=== PATIENT | female | born 1980 | race American Indian/Alaskan Native ===

== ENCOUNTER 2021-02-10 20:35 | Emergency (ER) | payer BC ==
[2021-02-10 22:37] VITALS: BP 136/64
[2021-02-10 23:27] LABS: Bilirubin,Urine NEG (Negative); Blood,Urine NEG (Negative); Color,Urine Yellow (Yellow); Mucus,Urine FEW /HPF; Protein,Urine <15 mg/dL mg/dL (Negative)
[2021-02-11] MEDS ORDERED: IBUPROFEN 600 MG TAB PO ONE (00:59)
[2021-02-11] MEDS ORDERED: ONDANSETRON 4 MG/2 ML INJ IV ONE (00:59)
[2021-02-11] MEDS ORDERED: predniSONE 20 MG TAB PO ONE (00:59)
[2021-02-11] MEDS ORDERED: diazePAM 5 MG TAB PO ONE (00:59)
[2021-02-11] MEDS ORDERED: ONDANSETRON 4 MG ODT TAB PO ONE (01:20)
--- NOTE | 2021-02-11 01:24 | Emergency Department Report ---
ED Back Pain/Injury HPI - General Chief Complaint: Back Pain/Injury Stated Complaint: BACK PAIN Source: patient Limitations: No Limitations - History of Present Illness Initial Comments: Patient is a 40-year-old -Swiss female with no past medical history presents to the ED with complaint of acute onset persistent nontraumatic low back pain for the last 2 days, worse in the last 12 hours. Patient states that the pain is worse with any movement and that the pain is sharp and constant diffusely in the lower back. Patient denies fall, traumatic injury, heavy lifting, dysuria, urinary frequency and urgency, vaginal bleeding, dizziness, nausea and vomiting, abdominal pain, diarrhea, numbness and tingling or weakness of lower extremities bilaterally, urinary retention or incontinence, fever, chills, bowel incontinence and saddle paresthesia. MD Complaint: back pain (lower back pain) -: Sudden, days(s) (2) Similar Symptoms Previously: No Place: home Radiation: none Severity: severe Severity scale (0 -10): 7 Quality: sharp, aching Consistency: constant Improves With: none Worsens With: movement Context: unknown, other (spontaneous) Associated Symptoms: denies other symptoms. denies: confusion, weakness, chest pain, numbness, difficulty walking, cough, difficulty urinating, diaphoresis, constipation, headaches, abdominal pain, loss of appetite, malaise, nausea/vomiting, rash, seizure, shortness of breath, syncope Treatments Prior to Arrival: acetaminophen - Related Data Previous Rx's Medication Instructions Recorded Last Taken Type Ibuprofen [Motrin] 800 mg PO Q8HR PRN #30 tablet 02/11/21 Unknown Rx methOCARBAMOL [Robaxin TAB] 750 mg PO Q8H PRN #21 tablet 02/11/21 Unknown Rx Allergies Allergy/AdvReac Type Severity Reaction Status Date / Time No Known Allergies Allergy Unverified 02/10/21 22:34 ED Review of Systems ROS: Stated complaint: BACK PAIN Other details as noted in HPI Constitutional: denies: chills, fever Eyes: denies: eye pain, eye discharge, vision change ENT: denies: ear pain, throat pain Respiratory: denies: cough, shortness of breath, wheezing Cardiovascular: denies: chest pain, palpitations Endocrine: no symptoms reported Gastrointestinal: denies: abdominal pain, nausea, vomiting, diarrhea Genitourinary: denies: urgency, dysuria, discharge Musculoskeletal: denies: back pain, joint swelling, arthralgia Skin: denies: rash, lesions Neurological: denies: headache, weakness, paresthesias Psychiatric: denies: anxiety, depression Hematological/Lymphatic: denies: easy bleeding, easy bruising ED Past Medical Hx - Past Medical History Previous Medical History?: Yes Additional medical history: chronic back pain - Surgical History Past Surgical History?: No - Social History Smoking Status: Never Smoker Substance Use Type: None - Medications Home Medications: Home Medications Medication Instructions Recorded Confirmed Last Taken Type Ibuprofen [Motrin] 800 mg PO Q8HR PRN #30 tablet 02/11/21 Unknown Rx methOCARBAMOL [Robaxin TAB] 750 mg PO Q8H PRN #21 tablet 02/11/21 Unknown Rx ED Physical Exam - General Limitations: No Limitations General appearance: alert, in no apparent distress - Head Head exam: Present: atraumatic, normocephalic, normal inspection - Eye Eye exam: Present: normal appearance, PERRL, EOMI Pupils: Present: normal accommodation - ENT ENT exam: Present: normal exam, normal orophraynx, mucous membranes moist, TM's normal bilaterally, normal external ear exam - Neck Neck exam: Present: normal inspection, full ROM - Respiratory Respiratory exam: Present: normal lung sounds bilaterally. Absent: respiratory distress, wheezes, rales, rhonchi, stridor, chest wall tenderness, accessory muscle use, decreased breath sounds, prolonged expiratory - Cardiovascular Cardiovascular Exam: Present: regular rate, normal rhythm, normal heart sounds. Absent: systolic murmur, diastolic murmur, rubs, gallop - GI/Abdominal GI/Abdominal exam: Present: soft, normal bowel sounds. Absent: tenderness, guarding, rebound, hyperactive bowel sounds, hypoactive bowel sounds, organomegaly - Extremities Exam Extremities exam: Present: normal inspection, full ROM, normal capillary refill - Back Exam Back exam: Present: normal inspection, full ROM, tenderness (Palpable lumbosacral paraspinal musculoskeletal tenderness), muscle spasm, paraspinal tenderness - Neurological Exam Neurological exam: Present: alert, oriented X3, CN II-XII intact, normal gait, reflexes normal - Psychiatric Psychiatric exam: Present: normal affect, normal mood - Skin Skin exam: Present: warm, dry, intact, normal color. Absent: rash ED Course Vital Signs 02/10/21 22:35 Temperature 98.9 F Pulse Rate 85 Respiratory 18 Rate Blood Pressure 136/64 O2 Sat by Pulse 96 Oximetry ED Medical Decision Making - Medical Decision Making This is a 40-year-old -[place]iss female with no past medical history presents to the ED with complaint of acute onset persistent nontraumatic low back pain for the last 2 days, worse in the last 12 hours. Patient states that the pain is worse with any movement and that the pain is sharp and constant diffusely in the lower back. In the ED, patient is alert and oriented x3 and is not in any distress. Patient was treated for pain in the ED and urinalysis showed no acute urinary tract infection. Patient symptoms are likely due to muscle spasm given the fact that the pain is not due to traumatic injury or heavy lifting. Patient has not exhibited any neurological symptoms or sciatica symptoms. On reevaluation, patient pain is well controlled medication. Patient was discharged home on pain medications and muscle relaxants and was advised to follow-up with her primary care physician in 5 to 7 days for reevaluation. Patient is advised return to the ED immediately if symptoms get worse. - Differential Diagnosis Muscle spasm; UTI; muscle strain; kidney stones Critical care attestation.: If time is entered above; I have spent that time in minutes in the direct care of this critically ill patient, excluding procedure time. ED Disposition Clinical Impression: Spasm of muscle of lower back, Strain of muscle, fascia and tendon of lower back, initial encounter Acute low back pain without sciatica Qualifiers: Back pain laterality: bilateral Qualified Code(s): M54.5 - Low back pain Disposition: - TO HOME OR SELFCARE Is pt being admited?: No Does the pt Need Aspirin: No Condition: Stable Instructions: Muscle Strain, [id number], Muscle Cramps and Spasms, [id number], Low Back Sprain or Strain Rehab-SportsMed Additional Instructions: Urinalysis showed no acute abnormalities. Your symptoms are likely due to muscle spasm or muscle strain of lower back. Therefore take pain medications as needed as well as muscle relaxants. Follow-up with your primary care physician in 5 to 7 days for reevaluation. Return to the ED immediately if symptoms get worse. Prescriptions: Ibuprofen [Motrin] 800 mg PO Q8HR PRN #30 tablet PRN Reason: Pain , Severe (7-10) methOCARBAMOL [Robaxin TAB] 750 mg PO Q8H PRN #21 tablet PRN Reason: Muscle Spasm Referrals: [facility] [Provider Group] - 3-5 Days Forms: Work/School Release Form(ED) Time of Disposition: 01:29 Print Language: CUBAN
== END 2021-02-11 02:05 | disposition home or self-care (01) ==
LOC: ED 20:35
DX: S39.012A Strain of muscle, fascia and tendon of lower back, initial encounter (principal); M62.830 Muscle spasm of back; Z79.1 Long term (current) use of non-steroidal anti-inflammatories (NSAID); Z79.899 Other long term (current) drug therapy; X58.XXXA Exposure to other specified factors, initial encounter; Y93.89 Activity, other specified; Y92.89 Other specified places as the place of occurrence of the external cause; Y99.8 Other external cause status
CPT/HCPCS: 81001; 99283; J7512; J2405; Q0162